=== PATIENT | male | born 1985 | race Hispanic/Latino ===

== ENCOUNTER 2017-04-14 11:53 | Outpatient (CLI) | payer OTHER ==
--- NOTE | 2017-04-14 15:58 | NM ---
EXAM: NUCLEAR MEDICINE HIDA SCAN WITH EF 04/14/17 HISTORY: Right upper quadrant pain. Gastroesophageal reflux disease. 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 COMPARISON: None. TECHNIQUE: The patient administered 5 millicuries of technetium 99m Mebrofenin intravenously. Gallbladder ejecti on fraction was determined after the patient administered 8 oz of Ensure orally. FINDINGS: There is appropriate uptake of the radiotracer by the hepatic parenchyma. There is excretion of radio tracer into the common bile duct. Passage of radiotracer from the common bile duct into small bowel l oops. Localization of radiotracer in the gallbladder is noted on the 32 minute image. Gallbladder ejection fraction is 58%. IMPRESSION: 1. No scintigraphic evidence of acute cholecystitis. 2. Normal gallbladder ejection fraction. POS: OFF
== END 2017-04-14 11:54 | disposition home or self-care (01) ==
LOC: NM 11:53
PROVIDERS: ATTEND Internal Medicine Gastroenterology
DX: K70.0 Alcoholic fatty liver (principal); K21.9 Gastro-esophageal reflux disease without esophagitis; R10.11 Right upper quadrant pain
CPT/HCPCS: 78227; A9537